=== PATIENT | male | born 1975 | race Caucasian/White ===

== ENCOUNTER 2017-06-01 09:47 | Inpatient (IN) | payer OTHER ==
--- NOTE | 2017-06-01 15:22 | HP ---
Admission [facility] Chief Complaint: I AM HERE [facility] FROM COCAINE Allergies/Adverse Reactions: Allergies Allergy/AdvReac Type Severity Reaction Status Date / Time No Known Allergies Allergy Verified 06/01/17 14:44 History of Present Illness: THIS 42 YEARS OLD MALE WITH COCAINE DEPENDENCE FOR REHAB PATIENT LAST TREATMENT IN [facility] 10 DAYS AGO NOT COMPLETED NO SIGNIFICANT PERIOD OF SOBRIETY Exam Limitations: No Limitations - Ebola screening Have you traveled outside of the country in the last 21 days: No Have you had contact with anyone from an Ebola affected area: No Have you been sick,other than usual withdrawal symptoms: No Do you have a fever: No - Review of Systems Constitutional: No Symptoms Reported EENT: reports: No Symptoms Reported Respiratory: reports: No Symptoms reported Cardiac: reports: No Symptoms Reported GI: reports: No Symptoms Reported : reports: No Symptoms Reported Musculoskeletal: reports: No Symptoms Reported Integumentary: reports: No Symptoms Reported Neuro: reports: No Symptoms reported Endocrine: reports: No Symptoms Reported Hematology: reports: No Symptoms Reported Psychiatric: reports: No Sypmtoms Reported Patient History - Patient Medical History Hx Anemia: No Hx Asthma: No Hx Chronic Obstructive Pulmonary Disease (COPD): No Hx Cancer: No Hx Cardiac Disorders: No Hx Congestive Heart Failure: No Hx Hypertension: No Hx Hypercholesterolemia: No Hx Pacemaker: No HX Cerebrovascular Accident: No Hx Seizures: No Hx Dementia: No Hx Diabetes: No Hx Gastrointestinal Disorders: No Hx Liver Disease: No Hx Genitourinary Disorders: No Hx Sexually Transmitted Disorders: No Hx Renal Disease (ESRD): No Hx Thyroid Disease: No Hx Human Immunodeficiency Virus (HIV): No (LAST 2015) Hx Hepatitis C: No Hx Depression: No Hx Suicide Attempt: No Hx Bipolar Disorder: No Hx Schizophrenia: No Other Medical History: NO SUICIDAL,NO HOMICIDAL - Patient Surgical History Past Surgical History: Yes Other Surgical History: REMOVAL OF LIPOMA LEFT SCAPULAR AREA X 2 - PPD History Previous Implant?: Yes Documented Results: Negative w/o proof PPD to be Administered?: Yes - Smoking Cessation Smoking history: Current every day smoker Have you smoked in the past 12 months: Yes Hx Chewing Tobacco Use: No Initiated information on smoking cessation: Yes 'Breaking Loose' booklet given: 06/01/17 - Substance & Tx. History Hx Alcohol Use: No Hx Substance Use: Yes Substance Use Type: Cocaine Hx Substance Use Treatment: Yes ([facility] 10 DAYS AGO NOT COMPLETED) - Substances Abused Cocaine Route: Inhalation Frequency: 3-6 times per week Amount used: $100 Age of first use: 18 Date of Last Use: 05/30/17 Family Disease History - Family Disease History Family History: Denies Admission Physical Exam [facility] - Vital Signs Vital Signs: Vital Signs - 24 hr 06/01/17 10:03 Temperature 98.8 F Pulse Rate 74 Respiratory 18 Rate Blood Pressure 144/90 - Physical General Appearance: Yes: Within Normal Limits, No Apparent Distress HEENTM: Yes: Normal ENT Inspection, Normocephalic, [place] Respiratory: Yes: Lungs Clear, Normal Breath Sounds, No Respiratory Distress Neck: Yes: Within Normal Limits, Supple, Trachea in good position Breast: Yes: Within Normal Limits Cardiology: Yes: Within Normal Limits, Regular Rate, S1, S2 Abdominal: Yes: Within Normal Limits, Non Tender, Soft Genitourinary: Yes: Within Normal Limits Back: Yes: Within Normal Limits Musculoskeletal: Yes: Within Normal Limits, full range of Motion Extremities: Yes: Within Normal Limits, Normal Range of Motion Neurological: Yes: 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, Alert, Motor Strength 5/5 Integumentary: Yes: Within Normal Limits Lymphatic: Yes: Within Normal Limits - Diagnostic (1) Cocaine dependence Current Visit: Yes Status: Acute (2) Nicotine dependence Current Visit: Yes Status: Acute (3) Status post excision of lipoma Current Visit: Yes Status: Acute Cleared for Admission [facility] - Detox or Rehab Claeared for Rehab Admission: Yes [facility] Breath Alcohol Content Breath Alcohol Content: 0 Urine Drug Screen - Results Drug Screen Negative: No Urine Drug Screen Results: [facility]aine Inpatient Rehab Admission - Initial Determination Are CD services needed?: Yes Free of communicable disease: Yes Not in need of hospitalization: Yes - Rehab Admission Criteria Poor recovery environment: Yes Patient is meeting Inpatient Rehab admission criteria:: Yes
[2017-06-01] MEDS ORDERED: hydrOXYzine PAMOATE 50 MG CAPSULE (FP) PO PRN (16:18)
[2017-06-01] MEDS ORDERED: MENTHOL/PHENOL 1 EACH UD MM PRN (16:18)
[2017-06-01] MEDS ORDERED: guaiFENesin/D-METHORPHAN HB 10 ML UNIT-DOSE CUPS PO PRN (16:18)
[2017-06-01] MEDS ORDERED: ACETAMINOPHEN 325 MG TABLET (FP) PO PRN (16:18)
[2017-06-01] MEDS ORDERED: LOPERAMIDE HCL 2 MG CAPSULE PO PRN (16:18)
[2017-06-01] MEDS ORDERED: MAGNESIUM HYDROX 2400MG/30ML ORAL SUSPENSION 30 ML CUP PO PRN (16:18)
[2017-06-01] MEDS ORDERED: P-EPHED 60MG/TRIPROLIDI 2.5MG TABLET PO PRN (16:18)
[2017-06-01] MEDS ORDERED: MAG HYDROX/AL HYDROX/SIMETH 30 ML UNIT-DOSE CUP PO PRN (16:18)
[2017-06-01] MEDS ORDERED: MAGNESIUM CITRATE 300 ML BOTTLE PO PRN (16:18)
[2017-06-01] MEDS ORDERED: TUBERCULIN PPD 5 TU/0.1ML VIAL ID ONE (19:24)
[2017-06-01 22:06] LABS: URINE APPEARANCE CLEAR; URINE BILIRUBIN NEGATIVE (NEGATIVE); URINE BLOOD NEGATIVE (NEGATIVE); URINE COLOR YELLOW; URINE GLUCOSE (UA) NEGATIVE (NEGATIVE); URINE KETONE NEGATIVE (NEGATIVE); URINE NITRITE NEGATIVE (NEGATIVE); URINE PROTEIN NEGATIVE (NEGATIVE); URINE UROBILINOGEN NEGATIVE mg/dL (0.2-1.0)
[2017-06-01] MEDS: THIAMINE HCL 100 MG TABLET (FP) PO SCH (22:35)
[2017-06-01] MEDS: diphenhydrAMINE HCL 50 MG CAPSULE PO PRN (22:35)
--- NOTE | 2017-06-02 06:24 | HP ---
Psychiatrist Admission - Data Date of interview: 06/02/17 Admission source: Friend Identifying data: This is the first [facility] admission for this 42 years old male, father of 2 children, unemployed with no source of income, domiciled living with his and children Medical History: Significant for history of kidney stones and surgery for excision of lipoma on left scapular area. Smokes cigarettes Psychiatric History: Denies history of previous psychiatric treatment Physical/Sexual Abuse/Trauma History: Denies history of verbal physical or sexual as well as DV relationship. No service Additional Comment: Reports history of 6 previous arrests including 3 felony convictions. Denies being on parole/probation at present Vital Signs: Vital Signs - 24 hr 06/01/17 06/02/17 06/02/17 10:03 00:30 03:30 Temperature 98.8 F Pulse Rate 74 Respiratory 18 18 18 Rate Blood Pressure 144/90 Allergies/Adverse Reactions: Allergies Allergy/AdvReac Type Severity Reaction Status Date / Time No Known Allergies Allergy Verified 06/01/17 14:44 Date of last physical exam: 06/01/17 Concur with the findings of this exam: Yes - Substance Abuse/Tx History Hx Alcohol Use: No Hx Substance Use: Yes Substance Use Type: Cocaine (Started using cocaine at age 18, consumes $100 worth 3-6 times weekly. Last used on 05/30/17) Hx Substance Use Treatment: Yes (3-4 prvious inpt rehab) Mental Status Exam - Mental Status Exam Alert and Oriented to: Time, Place, Person Cognitive Function: Fair Patient Appearance: Well Groomed Mood: Irritable Affect: Appropriate Speech Pattern: Clear Voice Loudness: Normal Thought Process: Intact Hallucinations: Denies Suicidal Ideation: Denies Homicidal Ideation: Denies Insight/Judgement: Fair Sleep: Poorly Appetite: Good Muscle strength/Tone: Normal Gait/Station: Normal Psychiatric Findings - Problem List (Jarrell 1, 2,3) (1) Cocaine dependence Current Visit: Yes Status: Acute (2) Nicotine dependence Current Visit: Yes Status: Acute (3) Substance induced mood disorder Current Visit: Yes Status: Acute (4) Substance-induced sleep disorder Current Visit: Yes Status: Acute (5) Status post excision of lipoma Current Visit: Yes Status: Acute - Initial Treatment Plan Initial Treatment Plan: 1) Start Belsomra 10 mg po HS prn for insomnia. 2) Monitor progress
[2017-06-02 08:08] LABS: URINE LEUK ESTERASE Negative (NEGATIVE)
[2017-06-02 10:15] LABS: MEAN CELL VOLUME 87.6 fl (80-96); MEAN PLT VOLUME 9.6 fl (7.5-11.1); PLATELET COUNT 264 K/MM3 (134-434); WHITE BLOOD COUNT 6.5 K/mm3 (4.0-10.0)
[2017-06-02] MEDS: NICOTINE 21 MG/24 HOURS TOPICAL PATCH TD SCH (10:27)
[2017-06-02] MEDS: PRENATAL VITAMINS W/ FOLIC ACID TABLET (FP) PO SCH (10:27)
[2017-06-02 10:39] LABS: ALBUMIN 3.9 g/dl (3.4-5.0); ALK PHOS 114 U/L (45-117); ANION GAP 7 (8-16); BILIRUBIN,TOTAL 0.4 mg/dL (0.2-1.0); CO2 29 mmol/L (21-32); CREATININE 1.1 mg/dL (0.7-1.3); GLUCOSE,RANDOM 83 mg/dL (74-106); SGOT/AST 19 U/L (15-37); SGPT/ALT 27 U/L (12-78); TOT PROT 7.4 g/dl (6.4-8.2)
--- NOTE | 2017-06-02 10:43 | EKG ---
Test Reason : Blood Pressure : / mmHG Vent. Rate : 076 BPM Atrial Rate : 076 BPM P-R Int : 148 ms QRS Dur : 098 ms QT Int : 406 ms P-R-T Axes : 056 015 031 degrees QTc Int : 456 ms NORMAL SINUS RHYTHM RSR' OR QR PATTERN IN V1 SUGGESTS RIGHT VENTRICULAR CONDUCTION DELAY BORDERLINE ECG NO PREVIOUS ECGS AVAILABLE Confirmed by MILAGROS LINDER MD ([id number]) on 06/02/2017 10:43:26 AM Referred By: Confirmed By:MILAGROS LINDER MD
[2017-06-02] MEDS ORDERED: PNEUMOC 13-VAL CONJ-DIP CRM/PF 0.5 ML DISP.SYRIN IM ONE (12:00)
[2017-06-02] MEDS ORDERED: FLU VACCINE QUAD 60 MCG/0.5 ML (MDV 17-18) IM ONE (12:00)
[2017-06-02] MEDS ORDERED: PNEUMOCOCCAL 23 VACCINE 0.5 ML VIAL IM ONE (12:00)
[2017-06-02 12:41] LABS: HIV 1 & 2 AB NEGATIVE; HIV 1 AGp24 NEGATIVE
[2017-06-02] MEDS: IBUPROFEN 400 MG TABLET (FP) PO PRN (19:05)
[2017-06-02] MEDS ORDERED: SUVOREXANT 10 MG TABLET PO PRN (22:00)
[2017-06-02] MEDS: THIAMINE HCL 100 MG TABLET (FP) PO SCH (23:05)
[2017-06-03] MEDS: PRENATAL VITAMINS W/ FOLIC ACID TABLET (FP) PO SCH (10:45)
[2017-06-03] MEDS: NICOTINE 21 MG/24 HOURS TOPICAL PATCH TD SCH (10:45)
[2017-06-03] MEDS: THIAMINE HCL 100 MG TABLET (FP) PO SCH (21:50)
[2017-06-03] MEDS: diphenhydrAMINE HCL 50 MG CAPSULE PO PRN (21:50)
[2017-06-04] MEDS: PRENATAL VITAMINS W/ FOLIC ACID TABLET (FP) PO SCH (10:21)
[2017-06-04] MEDS: NICOTINE 21 MG/24 HOURS TOPICAL PATCH TD SCH (10:21)
[2017-06-04] MEDS ORDERED: diphenhydrAMINE HCL 50 MG CAPSULE PO PRN (20:00)
[2017-06-04] MEDS: THIAMINE HCL 100 MG TABLET (FP) PO SCH (21:31)
[2017-06-05] MEDS: PRENATAL VITAMINS W/ FOLIC ACID TABLET (FP) PO SCH (09:56)
[2017-06-05] MEDS: NICOTINE 21 MG/24 HOURS TOPICAL PATCH TD SCH (09:57)
[2017-06-05] MEDS: THIAMINE HCL 100 MG TABLET (FP) PO SCH (21:43)
[2017-06-05] MEDS ORDERED: SUVOREXANT 10 MG TABLET PO PRN (22:00)
[2017-06-06] MEDS: NICOTINE 21 MG/24 HOURS TOPICAL PATCH TD SCH (10:22)
[2017-06-06] MEDS: PRENATAL VITAMINS W/ FOLIC ACID TABLET (FP) PO SCH (10:23)
[2017-06-06] MEDS: THIAMINE HCL 100 MG TABLET (FP) PO SCH (22:03)
[2017-06-07] MEDS: PRENATAL VITAMINS W/ FOLIC ACID TABLET (FP) PO SCH (09:59)
[2017-06-07] MEDS: NICOTINE 21 MG/24 HOURS TOPICAL PATCH TD SCH (10:00)
--- NOTE | 2017-06-07 14:25 | PN ---
Psychiatric Progress Note Vital Signs: Vital Signs Period Temp Pulse Resp BP Sys/Musa Pulse Ox Last 24 Hr 97.3 F 66 16-18 141/80 Date of Session: 06/07/17 Chief Complaint:: Discharge Note HPI: Patient addressing Cocaine Dependence comorbid with Nicotine Dependence, Substance-Induced Mood Disorder and Substance-Induced Sleep Disorder Current Medications: Active Medications Generic Name Dose Route Start Last Admin Trade Name Freq PRN Reason Stop Dose Admin Acetaminophen 650 mg 06/01/17 16:18 06/03/17 19:56 Tylenol - PO 650 mg Q4H PRN Administration PAIN Al Hydroxide/Mg Hydroxide 30 ml 06/01/17 16:18 Mylanta Oral Suspension - PO Q6H PRN DYSPEPSIA Diphenhydramine HCl 50 mg 06/04/17 20:00 06/04/17 21:31 Benadryl - PO 50 mg HS PRN Administration INSOMNIA Eucalyptus/Menthol/Phenol/Sorbitol 1 each 06/01/17 16:18 Cepastat Lozenge - MM Q4H PRN SORE THROAT Guaifenesin 10 ml 06/01/17 16:18 Robitussin Dm - PO Q6H PRN COUGH Hydroxyzine Pamoate 50 mg 06/01/17 16:18 06/05/17 21:44 Vistaril - PO 50 mg Q4H PRN Administration AGITATION Ibuprofen 400 mg 06/01/17 16:18 06/02/17 19:05 Motrin - PO 400 mg Q6H PRN Administration SEVERE PAIN Loperamide HCl 4 mg 06/01/17 16:18 Imodium - PO Q6H PRN DIARRHEA Magnesium Citrate 300 ml 06/01/17 16:18 Citroma - PO Q48H PRN CONSTIPATION Magnesium Hydroxide 30 ml 06/01/17 16:18 Milk Of Magnesia - PO DAILY PRN CONSTIPATION Nicotine 21 mg 06/02/17 10:00 06/07/17 10:00 Nicoderm Patch - TD Not Given DAILY CODY Multivit/Folic Acid/Iron 1 tab 06/02/17 10:00 06/07/17 09:59 Vitamins (Sjr) - PO 1 tab DAILY CODY Administration Pseudoephedrine/Triprolidine 1 combo 06/01/17 16:18 Actifed - PO TID PRN NASAL CONGESTION Thiamine HCl 100 mg 06/01/17 22:00 06/06/17 22:03 Vitamin B1 - PO 100 mg HS CODY Administration Current Side Effect: No Lab tests ordered: Yes Lab tests reviewed: Yes Provider note:: Patient will complete this program on 06/08/17. He has met his short term goals and will cintinue to address his issues in outpatient treatment at [facility] at [address] [place] [address]. Told fha underwriter that from his participation in this program, he has learned to be focus on himself and take things a day at a time. He is stable for discharge on Total face to face time:: 35 Mental Status Exam - Mental Status Exam Alert and Oriented to: Time, Place, Person Cognitive Function: Fair Patient Appearance: Well Groomed Mood: Hopeful, Euthymic Affect: Appropriate Patient Behavior: Cooperative Speech Pattern: Clear Voice Loudness: Normal Thought Process: Intact, Goal Oriented Thought Disorder: Not Present Hallucinations: Denies Suicidal Ideation: Denies Homicidal Ideation: Denies Insight/Judgement: Fair Sleep: Fair Appetite: Good Muscle strength/Tone: Normal Gait/Station: Normal Psychiatric Treatment Plan - Problem List (1) Cocaine dependence Current Visit: Yes (2) Nicotine dependence Current Visit: Yes (3) Substance induced mood disorder Current Visit: Yes (4) Substance-induced sleep disorder Current Visit: Yes (5) Status post excision of lipoma Current Visit: Yes Initial treatment plan: Patient is discharged tomorrow and referred to [facility] for outpatient treatment
[2017-06-07] MEDS: IBUPROFEN 400 MG TABLET (FP) PO PRN (19:42)
[2017-06-07] MEDS: THIAMINE HCL 100 MG TABLET (FP) PO SCH (23:43)
[2017-06-08 07:03] VITALS: BP 139/90; PULSE 70; TEMP 97.8
== END 2017-06-08 09:25 | disposition home or self-care (01) | DRG 772 ==
LOC: YASAS 09:47 → Y3W 15:18
PROVIDERS: ADMIT Psychiatry & Neurology Psychiatry; ATTEND Psychiatry & Neurology Psychiatry
PROC: HZ42ZZZ Group Counseling for Substance Abuse Treatment, Cognitive-Behavioral (ICD-10-PCS; principal; 2017-06-01)
DX: F14.20 Cocaine dependence, uncomplicated (principal); F17.210 Nicotine dependence, cigarettes, uncomplicated; F19.24 Other psychoactive substance dependence with psychoactive substance-induced mood disorder; F19.282 Other psychoactive substance dependence with psychoactive substance-induced sleep disorder; Z98.890 Other specified postprocedural states
CPT/HCPCS: 36415; 80053; 81003; 85027; 86593; 87389; 90688; 90732; 93005; 93010; G0008; G0009

== ENCOUNTER 2019-09-03 08:09 | Inpatient (IN) | payer SELFPAY ==
[2019-09-03 08:43] VITALS: BMI 30.8
--- NOTE | 2019-09-03 09:30 | HP ---
CIWA Score Nausea/Vomitin Muscle Tremors: 3 Anxiety: 0-No Anxiety, at Ease Agitation: 0-Normal Activity Paroxysmal Sweats: 2 Orientation: 1-Uncertain about Date Tacttile Disturbances: 1-Very Mild Itch/Numbness Auditory Disturbances: 0-None Visual Disturbances: 2-Mild Sensitivity Headache: 2-Mild CIWA-Ar Total Score: 13 - Admission Criteria [facility]ASAS Guidelines: Admission for Medically Managed Detox: Requires at least one of the followin. CIWA greater than 12 2. Seizures within the past 24 hours 3. Delirium tremens within the past 24 hours 4. Hallucinations within the past 24 hours 5. Acute intervention needed for co occurring medical disorder 6. Acute intervention needed for co occurring psychiatric disorder 7. Severe withdrawal that cannot be handled at a lower level of care (continued vomiting, continued diarrhea, abnormal vital signs) requiring intravenous medication and/or fluids 8. Patient presents the following: CIWA greater than 12 Admission Criteria Met: Admission criteria met Admitting History and Physical - Smoking History Smoking history: Former smoker Have you smoked in the past 12 months: No - Alcohol/Substance Use Hx Alcohol Use: No Admission ROS S - HPI Chief Complaint: Withdrawal sx Allergies/Adverse Reactions: Allergies Allergy/AdvReac Type Severity Reaction Status Date / Time No Known Allergies Allergy Verified 09/03/19 08:37 History of Present Illness: 44 year old man presents seeking detox from alcohol. He denies alcohol related seizures or blackouts Exam Limitations: No Limitations - Ebola screening Have you traveled outside of the country in the last 21 days: No (N) Have you had contact with anyone from an Ebola affected area: No Have you been sick,other than usual withdrawal symptoms: No Do you have a fever: No - Review of Systems Constitutional: Chills, Changes in sleep EENT: reports: Recent change in vision Cardiac: reports: Lightheadedness GI: reports: Nausea, Poor Appetite, Poor Fluid Intake, Abdominal cramping : reports: No Symptoms Reported Musculoskeletal: reports: Back Pain, Joint Pain, Muscle Pain, Muscle Weakness Integumentary: reports: Sweating Neuro: reports: Headache, Numbness, Tremors Endocrine: reports: No Symptoms Reported Hematology: reports: No Symptoms Reported Psychiatric: reports: No Sypmtoms Reported Other Systems: Reviewed and Negative Patient History - Patient Medical History Hx Anemia: No Hx Asthma: No Hx Chronic Obstructive Pulmonary Disease (COPD): No Hx Cancer: No Hx Cardiac Disorders: No Hx Congestive Heart Failure: No Hx Hypertension: Yes Hx Hypercholesterolemia: No Hx Pacemaker: No HX Cerebrovascular Accident: No Hx Seizures: No Hx Dementia: No Hx Diabetes: No Hx Gastrointestinal Disorders: No Hx Liver Disease: No Hx Genitourinary Disorders: No Hx Sexually Transmitted Disorders: No Hx Renal Disease (ESRD): No Hx Thyroid Disease: No Hx Human Immunodeficiency Virus (HIV): No Hx Hepatitis C: No Hx Depression: No Hx Suicide Attempt: No Hx Bipolar Disorder: No Hx Schizophrenia: No - Patient Surgical History Past Surgical History: Yes Hx Neurologic Surgery: No Hx Cataract Extraction: No Hx Cardiac Surgery: No Hx Lung Surgery: No Hx Breast Surgery: No Hx Breast Biopsy: No Hx Abdominal Surgery: No Hx Appendectomy: No Hx Cholecystectomy: No Hx Genitourinary Surgery: No Hx Section: No Hx Orthopedic Surgery: No Other Surgical History: REMOVAL OF LIPOMA LEFT SCAPULAR AREA X 2 Anesthesia Reaction: No - PPD History Previous Implant?: Yes Documented Results: Negative w/proof Implanted On Prior [facility] Admission?: Yes Date: 06/03/17 PPD to be Administered?: Yes - Smoking Cessation Smoking history: Current every day smoker Have you smoked in the past 12 months: Yes Aproximately how many cigarettes per day: 20 Hx Chewing Tobacco Use: No Initiated information on smoking cessation: Yes 'Breaking Loose' booklet given: 09/03/19 - Substances abused Alcohol Substance route: Oral Frequency: Daily Amount used: 1 pint of liquor Age of first use: 13 Date of last use: 09/02/19 Cocaine Substance route: Smoking Frequency: Daily Amount used: $100 Age of first use: 17 Date of last use: 09/03/19 Admission Physical Exam [facility] - Vital Signs Vital Signs: Vital Signs - 24 hr 09/03/19 08:38 Temperature 99.1 F Pulse Rate 106 H Respiratory 18 Rate Blood Pressure 142/85 - Physical General Appearance: Yes: No Apparent Distress, Other (sleepy) HEENTM: Yes: Normocephalic, Normal Voice Respiratory: Yes: Chest Non-Tender, Lungs Clear, Normal Breath Sounds, No Respiratory Distress, No Accessory Muscle Use Neck: Yes: No masses,lesions,Nodules, Supple Breast: Yes: Breast Exam Deferred Cardiology: Yes: Regular Rhythm, Regular Rate, S1, S2 Abdominal: Yes: Normal Bowel Sounds, Non Tender, Soft Genitourinary: Yes: Within Normal Limits Back: Yes: Normal Inspection Musculoskeletal: Yes: Pelvis Stable, Back pain, Muscle Pain, Muscle weakness Extremities: Yes: Tremors Neurological: 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: 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, Alert (but sleepy) Integumentary: Yes: Cold, Moist Lymphatic: Yes: Within Normal Limits - Diagnostic (1) Alcohol dependence, uncomplicated Current Visit: Yes Status: Acute (2) Cocaine dependence Current Visit: Yes Status: Acute Qualifiers: Substance use status: uncomplicated Qualified Code(s): F14.20 - Cocaine dependence, uncomplicated (3) Nicotine dependence Current Visit: Yes Status: Acute Qualifiers: Nicotine product type: cigarettes Substance use status: uncomplicated Qualified Code(s): F17.210 - Nicotine dependence, cigarettes, uncomplicated Cleared for Admission [facility] - Detox or Rehab [facility] Level of Care: Medically Managed Detox Regimen/Protocol: Librium Claeared for Rehab Admission: No Breathalyzer - Breathalyzer Breathalyzer: 0 Urine Drug Screen - Test Device Lot number: [id number] Expiration date: 03/22/21 - Control Is test valid?: Yes - Results Drug screen NEGATIVE: No Urine drug screen results: [facility]-Cocaine Inpatient Rehab Admission - Rehab Decision to Admit Inpatient rehab admission?: No
[2019-09-03] MEDS ORDERED: hydrOXYzine PAMOATE 25 MG CAPSULE (FP) PO PRN (09:32)
[2019-09-03] MEDS ORDERED: MENTHOL/PHENOL 1 EACH UD MM PRN (09:32)
[2019-09-03] MEDS ORDERED: METHOCARBAMOL 500 MG TABLET PO PRN (09:32)
[2019-09-03] MEDS ORDERED: IBUPROFEN 400 MG TABLET (FP) PO PRN (09:32)
[2019-09-03] MEDS ORDERED: MAGNESIUM CITRATE 300 ML BOTTLE PO PRN (09:32)
[2019-09-03] MEDS ORDERED: NICOTINE POLACRILEX 2 MG GUM BUC PRN (09:32)
[2019-09-03] MEDS ORDERED: ACETAMINOPHEN 325 MG TABLET (FP) PO PRN ×2 (09:32)
[2019-09-03] MEDS ORDERED: chlordiazePOXIDE HCL 10 MG CAPSULE PO PRN (09:32)
[2019-09-03] MEDS ORDERED: MAGNESIUM HYDROX 2400MG/30ML ORAL SUSPENSION 30 ML CUP PO PRN (09:32)
[2019-09-03] MEDS ORDERED: MAG HYDROX/AL HYDROX/SIMETH 30 ML UNIT-DOSE CUP PO PRN (09:32)
[2019-09-03] MEDS ORDERED: BISMUTH SUBSALICYLATE 524 MG/30 ML UD PO PRN (09:32)
[2019-09-03] MEDS: PRENATAL VITAMINS W/ FOLIC ACID TABLET (FP) PO SCH (11:17)
[2019-09-03] MEDS: amLODIPine BESYLATE 10 MG TABLET (FP) PO SCH (11:17)
[2019-09-03] MEDS: NICOTINE 14 MG/24 HOURS TOPICAL PATCH TD SCH (11:24)
[2019-09-03] MEDS: chlordiazePOXIDE HCL 25 MG CAPSULE PO SCH ×2 (14:46→22:06)
[2019-09-03] MEDS: THIAMINE HCL 100 MG TABLET (FP) PO SCH (22:06)
[2019-09-03] MEDS: MELATONIN 5 MG TABLETS PO PRN (22:06)
[2019-09-04] MEDS: chlordiazePOXIDE HCL 25 MG CAPSULE PO SCH ×3 (06:16→22:21)
[2019-09-04] MEDS: NICOTINE 14 MG/24 HOURS TOPICAL PATCH TD SCH (10:32)
[2019-09-04] MEDS: PRENATAL VITAMINS W/ FOLIC ACID TABLET (FP) PO SCH (10:32)
[2019-09-04] MEDS: amLODIPine BESYLATE 10 MG TABLET (FP) PO SCH (10:32)
--- NOTE | 2019-09-04 11:23 | PN ---
S CIWA - CIWA Score Nausea/Vomitin-Mild Nausea/No Vomiting Muscle Tremors: 3 Anxiety: 3 Agitation: 3 Paroxysmal Sweats: 2 Orientation: 0-Oriented Tacttile Disturbances: 0-None Auditory Disturbances: 0-None Visual Disturbances: 0-None Headache: 0-None Present CIWA-Ar Total Score: 12 S Progress Note (SOAP) Subjective: 44 years old male admitted on 09/03/19 for alcohol withdrawal sx management treating with librium detox regimen ate breakfast resting on bed encourage to attend behavior and psychosocial therapies while in detox Objective: 09/04/19 11:21 Vital Signs Temperature 97.1 F L 09/04/19 10:35 Pulse Rate 100 H 09/04/19 10:35 Respiratory Rate 18 09/04/19 10:35 Blood Pressure 149/96 09/04/19 10:35 O2 Sat by Pulse Oximetry (%) 09/04/19 11:21 lab pending Assessment: 09/04/19 11:23 alcohol withdrawal Plan: librium regimen
[2019-09-04 12:09] LABS: HEMATOCRIT 42.7 % (35.4-49); HEMOGLOBIN 14.3 GM/dL (11.7-16.9); MCH 29.6 pg (25.7-33.7); MCHC 33.6 g/dl (32.0-35.9); MEAN CELL VOLUME 88.2 fl (80-96); MEAN PLT VOLUME 8.9 fl (7.5-11.1); PLATELET COUNT 317 K/MM3 (134-434); RBC 4.84 M/mm3 (4.00-5.60); RDW 14.5 % (11.9-15.9); WHITE BLOOD COUNT 7.2 K/mm3 (4.0-10.0)
[2019-09-04 12:24] LABS: ALBUMIN 3.2 g/dl (3.4-5.0); BILIRUBIN,TOTAL 0.2 mg/dL (0.2-1); BLOOD UREA NITROGEN 17.2 mg/dL (7-18); CALCIUM 8.8 mg/dL (8.5-10.1); POTASSIUM 4.3 mmol/L (3.5-5.1); TOT PROT 6.7 g/dl (6.4-8.2)
[2019-09-04] MEDS ORDERED: LISINOPRIL 10 MG TABLET (FP) PO SCH (22:00)
[2019-09-04] MEDS: MELATONIN 5 MG TABLETS PO PRN (22:21)
[2019-09-04] MEDS: THIAMINE HCL 100 MG TABLET (FP) PO SCH (22:21)
[2019-09-05] MEDS: chlordiazePOXIDE 5 MG CAPSULE PO SCH ×2 (06:26→14:13)
--- NOTE | 2019-09-05 10:29 | PN ---
[facility] CIWA - CIWA Score Nausea/Vomitin-Mild Nausea/No Vomiting Muscle Tremors: 2 Anxiety: 2 Agitation: 2 Paroxysmal Sweats: No Perspiration Orientation: 0-Oriented Tacttile Disturbances: 1-Very Mild Itch/Numbness Auditory Disturbances: 0-None Visual Disturbances: 0-None Headache: 1-Very Mild CIWA-Ar Total Score: 9 S Progress Note (SOAP) Subjective: alert,irritable,anxious,interrupted sleep,pain in the body Objective: 09/05/19 10:34 Vital Signs Temperature 98.1 F 09/05/19 05:00 Pulse Rate 82 09/05/19 05:00 Respiratory Rate 20 09/05/19 05:00 Blood Pressure 154/85 09/05/19 05:00 O2 Sat by Pulse Oximetry (%) 09/05/19 10:34 Laboratory Last Values WBC 7.2 K/mm3 (4.0-10.0) 09/04/19 08:12 RBC 4.84 M/mm3 (4.00-5.60) 09/04/19 08:12 Hgb 14.3 GM/dL (11.7-16.9) 09/04/19 08:12 Hct 42.7 % (35.4-49) 09/04/19 08:12 MCV 88.2 fl (80-96) 09/04/19 08:12 MCH 29.6 pg (25.7-33.7) 09/04/19 08:12 MCHC 33.6 g/dl (32.0-35.9) 09/04/19 08:12 RDW 14.5 % (11.9-15.9) 09/04/19 08:12 Plt Count 317 K/MM3 (134-434) D 09/04/19 08:12 MPV 8.9 fl (7.5-11.1) 09/04/19 08:12 Sodium 139 mmol/L (136-145) 09/04/19 08:12 Potassium 4.3 mmol/L (3.5-5.1) 09/04/19 08:12 Chloride 106 mmol/L (98-107) 09/04/19 08:12 Carbon Dioxide 30 mmol/L (21-32) 09/04/19 08:12 Anion Gap 4 MMOL/L (8-16) L 09/04/19 08:12 BUN 17.2 mg/dL (7-18) 09/04/19 08:12 Creatinine 1.0 mg/dL (0.55-1.3) 09/04/19 08:12 Est GFR (CKD-EPI)AfAm 104.15 09/04/19 08:12 Est GFR (CKD-EPI)NonAf 89.86 09/04/19 08:12 Random Glucose 103 mg/dL (74-106) 09/04/19 08:12 Calcium 8.8 mg/dL (8.5-10.1) 09/04/19 08:12 Total Bilirubin 0.2 mg/dL (0.2-1) 09/04/19 08:12 AST 18 U/L (15-37) 09/04/19 08:12 ALT 29 U/L (13-61) 09/04/19 08:12 Alkaline Phosphatase 109 U/L (45-117) 09/04/19 08:12 Total Protein 6.7 g/dl (6.4-8.2) 09/04/19 08:12 Albumin 3.2 g/dl (3.4-5.0) L 09/04/19 08:12 RPR Titer Nonreactive (NONREACTIVE) 09/04/19 08:12 Assessment: 09/05/19 10:35 withdrawal symptom Plan: continue detox librium regimen
[2019-09-05] MEDS: amLODIPine BESYLATE 10 MG TABLET (FP) PO SCH (10:49)
[2019-09-05] MEDS: NICOTINE 14 MG/24 HOURS TOPICAL PATCH TD SCH (10:50)
[2019-09-05] MEDS: PRENATAL VITAMINS W/ FOLIC ACID TABLET (FP) PO SCH (10:50)
[2019-09-05 17:37] VITALS: BP 152/103; PULSE 94; TEMP 97.7
--- NOTE | 2019-09-05 17:47 | PN ---
[facility] Progress Note Note: Was notified by the nurse that the patient wished to leave AMA. On interview, the patient states that he is concerned that his father is not answering the phone. In addition, he also states that he feels better and wishes to leave. Informed the patient that leaving the facility before he is finished with his detox would mean that he would need to leave AMA. Explained to the patient the risks of leaving AMA including worsening of his withdrawal, relapse, risk of overdose and possible . Patient verbalized understanding and still expressed wishes to leave. Patient A&Ox3 throughout the interview.
[2019-09-06] MEDS ORDERED: chlordiazePOXIDE HCL 10 MG CAPSULE PO PRN
[2019-09-06] MEDS ORDERED: chlordiazePOXIDE HCL 10 MG CAPSULE PO SCH (05:00)
[2019-09-07] MEDS ORDERED: chlordiazePOXIDE HCL 10 MG CAPSULE PO ONE (05:00)
== END 2019-09-05 17:44 | disposition left against medical advice (07) | DRG 770 ==
LOC: YASAS 08:09 → Y3N 09:52 → Y6N 09-04 22:26
PROVIDERS: ADMIT Allergy & Immunology; ATTEND Allergy & Immunology
PROC: HZ2ZZZZ Detoxification Services for Substance Abuse Treatment (ICD-10-PCS; principal; 2019-09-03)
DX: F10.230 Alcohol dependence with withdrawal, uncomplicated (principal); F14.20 Cocaine dependence, uncomplicated; F17.210 Nicotine dependence, cigarettes, uncomplicated; I10 Essential (primary) hypertension
CPT/HCPCS: 36415; 80053; 85027; 86593